=== PATIENT | male | born 1970 | race Caucasian/White ===

== ENCOUNTER 2021-12-03 10:39 | Emergency (ER) | payer BC ==
[~2021-12-03] VITALS: Ht 162.6 cm; Wt 90.4 kg
[2021-12-03 11:23] VITALS: BP 143/85
--- NOTE | 2021-12-03 11:39 | NUR ---
PT AMB TO ER BED 4
[2021-12-03] MEDS ORDERED: NACL 0.9% 1,000 ML IV ONE (12:25)
[2021-12-03] MEDS ORDERED: ONDANSETRON 4 MG/2 ML VIAL IVP ONE (12:25)
[2021-12-03] MEDS ORDERED: MORPHINE SULFATE 4 MG/ML SYR IVP ONE (12:25)
[2021-12-03 12:29] LABS: BASOPHILS % (AUTO) 0.3 % (0.0-2.0); EOSINOPHILS # (AUTO) 0.1 K/uL (0-0.4); EOSINOPHILS % (AUTO) 0.5 % (0.0-4.0); HEMATOCRIT 46.2 % (36-52); HEMOGLOBIN 15.5 g/dL (12.0-18.0); LYMPHOCYTES # (AUTO) 1.1 K/uL (2.0-11.5); MEAN CORPUSCULAR HEMOGLOBIN 29 pg (27-31); MEAN CORPUSCULAR HGB CONC 33 g/dL (33-37); MEAN CORPUSCULAR VOLUME 86.6 fL (80-94); MONOCYTES # (AUTO) 0.9 K/uL (0.8-1.0); MONOCYTES % (AUTO) 6.8 % (1.7-9.3); NEUTROPHILS # (AUTO) 11.6 K/uL (1.8-7.7); NEUTROPHILS % (AUTO) 84.4 % (42.2-75.2); PLATELET COUNT (AUTO) 220 K/uL (140-450); RED BLOOD CELL COUNT(AUTO) 5.34 MIL/uL (4.20-6.10); RED CELL DISTRIBUTION WIDTH 13.3 % (11.6-13.7); WHITE BLOOD COUNT (AUTO) 13.8 K/uL (4.8-10.8)
[2021-12-03 12:37] LABS: APPEARANCE,URINE CLEAR (CLEAR); BILIRUBIN,URINE NEGATIVE (NEGATIVE); BLOOD, URINE 2+ (NEGATIVE); COLOR,URINE YELLOW (YELLOW); LEUKOCYTE ESTERASE ,URINE NEGATIVE (NEGATIVE); NITRITE, URINE NEGATIVE (NEGATIVE); UGLUCOSE NEGATIVE (NEGATIVE)
[2021-12-03 12:42] LABS: ALBUMIN 3.8 g/dL (3.4-5.0); ANION GAP 17.2 (8-16); CARBON DIOXIDE 23.6 mmol/L (21-32); CREATININE 1.3 mg/dL (0.6-1.3); POTASSIUM 3.8 mmol/L (3.5-5.1); TOTAL BILIRUBIN 0.5 mg/dL (0.0-1.0)
[2021-12-03 12:55] LABS: RBC,URINE 20-50 /HPF (0-5)
[2021-12-03 12:56] LABS: WBC,URINE 0-5 /HPF (0-5)
[2021-12-03] MEDS ORDERED: KETOROLAC 30 MG/ML VIAL IVP ONE (13:55)
--- NOTE | 2021-12-03 14:30 | NUR ---
PT SLEEPING, NO AC DISTRESS, ABD PAIN 03/17, NO N/V/F/C, SR ON CM, O2 SAT 99% RA, SR UP TIMES 2, AWAITS DISPO
[2021-12-03] MEDS: TAMSULOSIN 0.4 MG CAP PO SCH (14:53)
[2021-12-03] MEDS ORDERED: CIPR500T4 PO (15:19)
[2021-12-03] MEDS ORDERED: TAMS0.4C96 PO (15:20)
[2021-12-03] MEDS ORDERED: IBUP-2213 PO (15:22)
[2021-12-03 16:00] VITALS: BP 132/76
--- NOTE | 2021-12-03 16:04 | NUR ---
DISCHARGED HOME, Patient discharged with v/s stable. Written and verbal after care instructions given and explained. Patient verbalized understanding. Ambulatory with steady gait. All questions addressed prior to discharge. Advised to follow up with PMD in 2-3 days
== END 2021-12-03 16:00 | disposition home or self-care (01) ==
LOC: MED 10:39
DX: N20.1 Calculus of ureter (principal); D72.829 Elevated white blood cell count, unspecified; E11.65 Type 2 diabetes mellitus with hyperglycemia; I10 Essential (primary) hypertension; Z98.890 Other specified postprocedural states
CPT/HCPCS: 36415; 71045; 74176; 80053; 81001; 83690; 85025; 93005; 96361; 96374; 96375; 99285; J1885; J2270; J2405; J7030; Q0092; 81025